=== PATIENT | male | born 1945 | race Caucasian/White ===

== ENCOUNTER → 2017-01-03 | Outpatient (CLI) | payer MEDICARE, OTHER ==
[~2017-01-03] MED LIST: Advair 250/50 Diskus IH; CODEINE PO; ECOTRIN325 MG PO; LIPITOR40 MG PO; LISINOPRIL40 MG PO; Levaquin PO; METOPROLOL PO; PHENERGAN PO; SPIRIVA1 INHALATI IH; predniSONE PO
== END | disposition home or self-care (01) ==
LOC: CDC 08:58
DX: N21.0 Calculus in bladder (principal); I44.0 Atrioventricular block, first degree
CPT/HCPCS: 93000